=== PATIENT | female | born 1950 | race Caucasian/White ===

== ENCOUNTER 2024-01-23 09:28 | Outpatient (AMB) | payer MEDICARE, MEDICAID, SELFPAY ==
[2024-01-23 09:38] VITALS: BP 118/64; PULSE 68; O2SAT 97; BMI 28.9
--- NOTE | 2024-01-23 09:38 | MHC.OFFVIS ---
Vital Signs 01/23/24 09:38 Height 5 ft 2 in Weight 158 lb 4.67 oz BMI 28.9 BP 118/64 Blood Pressure Location Lt brachial Position Sitting Pulse 68 Pulse Source Pulse Oximeter Pulse Oximetry (%) 97 Oxygen Delivery Method Room Air Intake Visit Reasons: PSA/MR Recieved Intake Note: Patient presents today for PSA. She was last seen on 10/03/23 at the [facility] by Dr. Doyle. Patient was never able to go to PT, she states by the time she went, the order was outdated. Allergies erythromycin base Allergy (Unknown, Unverified 01/23/24 09:40) Unknown lisinopril Adverse Reaction (Unknown, Unverified 01/23/24 09:40) Unknown pantoprazole [From Protonix] Adverse Reaction (Unknown, Verified 01/23/24 09:40) Unknown HPI HPI PSA/MR Recieved: Details: PT order for lumbar spine strengthening . She was unable to get an order from PCP during my practice transition. She is doing exercises learned from PT in the past and reports her back pain is controlled. Pain in R wrist medially is intermittent with bruising present. She has been wearing wrist brace at night. [facility]. Rheumatology history: Diagnosed with psoriatic arthritis presenting with dactylitis in bilateral hands with synovitis 2 episodes 09/22/2019 and 10/22/2020, later episode treated with prednisone course. History of psoriasis and palms, elbows and buttocks diagnosed by PCP. She has not had any future episodes, therefore, monitoring clinically. She is not on DMARD therapy. She has also had history of trigger finger right 4th treated with cortisone injection 05/23/2023 and left 4th 06/22/2022. She also has history of de Quervain tenosynovitis involving her right hand treated with cortisone injection 05/22/2022 and 05/23/2023. 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 [facility] Medical History (Updated 01/23/24 @ 10:08 by Drew Doyle MD) Tenosynovitis of finger Disturbance of salivary secretion Psoriatic arthropathy Osteoarthritis of lumbar spine Osteoarthritis, hand, primary localized Lumbar spondylosis Dry eye syndrome Backache Surgical History (Updated 01/21/24 @ 13:41 by Evelin Fernandez CMA) Hx of colonoscopy Family History (Updated 01/21/24 @ 13:46 by Evelin Fernandez CMA) Father Psoriasis Mother Heart disease Review of Systems Const All systems reviewed & are unremarkable except as noted in HPI and below Physical Exam Vital Signs: Last Vital Signs Pulse 68 01/23/24 09:38 BP 118/64 01/23/24 09:38 Pulse Ox 97 01/23/24 09:38 Oxygen Delivery Method Room Air 01/23/24 09:38 BMI result Body Mass Index 28.9 Const General: cooperative and healthy appearing Resp Effort & Inspection: normal respiratory effort Auscultation: clear to auscultation bilaterally Cardio Rate: regular rate Rhythm: regular rhythm Heart sounds: S1 normal heart sound present and S2 normal heart sound present Skin Other: Petechiae present right radial wrist Extrem Other: Tenderness to palpate along right 1st extensor compartment of wrist. Petechiae present along 1st extensor compartment of right wrist. No discoloration present on wrist. No synovitis or dactylitis of any joints. Good range of motion of upper extremity lower extremity. No tenderness of lumbar spine. Good lumbar flexion. Assessment & Plan Assessment & Plan (1) Psoriatic arthritis: Comment: Clinically quiescent. She is not on DMARD treatment. Code(s): L40.50 - Arthropathic psoriasis, unspecified Category: Medical Plan: Continue to monitor clinically (2) Lumbar spondylosis: Comment: Pain is controlled with home exercise program Code(s): M47.816 - Spondylosis without myelopathy or radiculopathy, lumbar region Category: Medical Plan: Continue home exercise program If pain worsens, patient will call office, we will then consider ordering L-spine x-ray with formal physical therapy consultation (3) De Quervain's tenosynovitis, right: Comment: Right recurrent. Pain is intermittent. We discussed conservative management. She currently has petechiae present locally. I would not recommend local cortisone injection to the area due to skin thinning, which may lead to more easily bruising. Code(s): M65.4 - Radial styloid tenosynovitis [de Quervain] Category: Medical Plan: She will purchase another wrist brace. Current wrist braces restrictive and she does not like wearing it during the day. She will apply diclofenac gel 1% to affected area every 4-6 hours as needed for pain control Plan . Coding Level of Care Code Est Pt Level 4 (55842) Complex EM visit Add On G2211 Diagnoses Psoriatic arthritis L40.50 Lumbar spondylosis M47.816 De Quervain's tenosynovitis, right M65.4
== END 2024-01-23 10:11 | disposition home or self-care (01) ==
PROVIDERS: PCP Internal Medicine; Visit Provider Internal Medicine Rheumatology
DX: L40.50 Arthropathic psoriasis, unspecified (principal); M47.816 Spondylosis without myelopathy or radiculopathy, lumbar region; M65.4 Radial styloid tenosynovitis [de Quervain]
CPT/HCPCS: 99214; G2211

== ENCOUNTER → 2024-01-23 09:28 | Outpatient (BNVA) | payer MEDICARE, MEDICAID, SELFPAY | PROVIDERS: PCP Internal Medicine; Visit Provider Internal Medicine Rheumatology | DX: L40.50 Arthropathic psoriasis, unspecified (principal); M65.341 Trigger finger, right ring finger; M65.4 Radial styloid tenosynovitis [de Quervain]; M47.816 Spondylosis without myelopathy or radiculopathy, lumbar region | CPT/HCPCS: 99212 ==

== ENCOUNTER 2024-06-11 08:53 | Outpatient (AMB) | payer MEDICARE, MEDICAID, SELFPAY ==
--- NOTE | 2024-06-11 09:05 | A.OFFVIS_ITS ---
Vital Signs 06/11/24 09:08 Height 5 ft 2 in BP 130/64 Blood Pressure Location Rt brachial Position Sitting Pulse 64 Pulse Source Pulse Oximeter Pulse Oximetry (%) 98 Oxygen Delivery Method Room Air Intake Visit Reasons: 3 mo follow up Intake Note: Pt presents today for arthritis. Accompanied by: Self / Same As Patient Allergies erythromycin base Allergy (Unknown, Verified 06/11/24 09:06) Unknown lisinopril Adverse Reaction (Unknown, Verified 06/11/24 09:06) Unknown pantoprazole [From Protonix] Adverse Reaction (Unknown, Verified 06/11/24 09:06) Unknown HPI HPI 3 mo follow up: Details: Pain in neck is debilitating that she wants to lie down. Trigger can be bending neck when doing dishes and folding laundry. It occurs a few times a week. Applying heat helps. Can last the entire day. Uses braces on both wrists and diclofenac gel. Hand pain has improved. R wrist pain>L wrist pain. [facility] Medical History (Updated 06/11/24 @ 22:44 by Drew Doyle MD) Tenosynovitis of finger Disturbance of salivary secretion Psoriatic arthropathy Osteoarthritis of lumbar spine Osteoarthritis, hand, primary localized Lumbar spondylosis Dry eye syndrome Backache Surgical History (Updated 01/21/24 @ 13:41 by Evelin Fernandez CMA) Hx of colonoscopy Family History (Updated 01/21/24 @ 13:46 by Evelin Fernandez CMA) Father Psoriasis Mother Heart disease Review of Systems Const All systems reviewed & are unremarkable except as noted in HPI and below Physical Exam Vital Signs: Last Vital Signs Pulse 64 06/11/24 09:08 BP 130/64 06/11/24 09:08 Pulse Ox 98 06/11/24 09:08 Oxygen Delivery Method Room Air 06/11/24 09:08 Const Other: General: Comfortable CVS: RRR Respiratory: clear to auscultation bilaterally. Good respiratory effort Skin: No lesions seen MSK: Tender to palpate lower spinous processes cervical spine. Normal range of motion of cervical spine. No paraspinal muscle tenderness. Tender to palpate bilateral 1st extensor compartment of wrists. Positive Kelly test. No synovitis or dactylitis present. Assessment & Plan Assessment & Plan (1) Neck pain: Comment: Localized tenderness is spinous process of lower cervical spine is concerning for osteoarthritis contributing to her pain. Code(s): M54.2 - Cervicalgia Category: Medical Plan: C-spine x-ray ordered PT ordered Return to clinic in 3 months (2) De Quervain's tenosynovitis, right: Comment: Right recurrent. Improved with bracing and diclofenac gel Code(s): M65.4 - Radial styloid tenosynovitis [de Quervain] Category: Medical Plan: Continue wearing wrist brace She will apply diclofenac gel 1% to affected area every 4-6 hours as needed for pain control. Monitor for worsening bruising OT ordered Return to clinic in 3 months (3) De Quervain's tenosynovitis, left: Comment: Recurrent. Improved with bracing and using diclofenac gel Code(s): M65.4 - Radial styloid tenosynovitis [de Quervain] Category: Medical Plan: See above (4) Psoriatic arthritis: Comment: Clinically quiescent. She is not on DMARD treatment. Code(s): L40.50 - Arthropathic psoriasis, unspecified Category: Medical Plan: Continue to monitor clinically (5) Lumbar spondylosis: Comment: Pain is controlled with home exercise program Code(s): M47.816 - Spondylosis without myelopathy or radiculopathy, lumbar region Category: Medical Plan: Continue home exercise program If pain worsens, patient will call office, we will then consider ordering L-s pine x-ray to evaluate for progression with formal physical therapy consultation Plan . Orders: Orders XR cervical spine 3V Today M54.2 - Cervicalgia PT Evaluation and Treatment Today M54.2 - Cervicalgia OT Evaluation and Treatment Today M65.4 - Radial styloid tenosynovitis [de Quervain] Coding Level of Care Code Est Pt Level 4 (73875) Complex EM visit Add On G2211 Diagnoses Neck pain M54.2 De Quervain's tenosynovitis, right M65.4 De Quervain's tenosynovitis, left M65.4 Psoriatic arthritis L40.50 Lumbar spondylosis M47.816
[2024-06-11 09:08] VITALS: BP 130/64; PULSE 64; O2SAT 98
--- OUTSIDE RECORDS SUMMARY | 2024-06-11 09:20 | XMS_ITS | Clinical Summary ---
Author Organization [address] [place] [address] [place] [phone] Phone Care Team Providers Care Milk Truck Driver Name Role Phone Nelia Robles MD Primary Care Provider Allergies Active Allergy Reactions Criticality Noted Date Comments Erythromycin Anaphylaxis High 06/27/2006 Other Reaction(s): Hives/Urticaria Lisinopril Headache Medium 01/23/2019 H/A's and poor BP control Pantoprazole Other High 02/06/2019 Protonix- Causes significant hypomagnesia Medications atorvastatin (LIPITOR) 40 mg tablet Take 1 Tablet by mouth daily. 4 Active cycloSPORINE 0.05 % drops 1 Drop 2 times daily. Active fluticasone propionate (FLONASE) 50 mcg/actuation nasal spray SPRAY 2 SPRAYS IN EACH NOSTRIL EVERY DAY 4 Active FREESTYLE LANCETS [facility] USE ONE TO CHECK GLUCOSE ONCE DAILY 4 Active magnesium chloride (Slow-Mag) 71.5 mg tablet,delayed release (DR/EC) Take by mouth. 0 Active albuterol HFA (PROAIR HFA ; PROVENTIL HFA ; VENTOLIN HFA) 90 mcg/actuation inhaler INHALE 2 PUFFS INTO THE LUNGS EVERY 4 HOURS NEEDED FOR COUGH OR WHEEZING 18 each 1 5 Active famotidine (PEPCID) 40 mg tablet TAKE 1 TABLET BY MOUTH TWICE A DAY 180 tablet 1 5 Active blood sugar diagnostic (FreeStyle Lite Strips) test stripIndications :Type 2 diabetes mellitus with diabetic neuropathy, unspecified ([facility]) CHECK GLUCOSE ONCE DAILY FREESTYLE LITE 100 strip 5 Active metoprolol succinate (TOPROL-XL) 25 mg 24 hr tablet TAKE 1/2 TABLET BY MOUTH DAILY 45 tablet 5 Active losartan (COZAAR) 25 mg tablet TAKE 1 TABLET BY MOUTH EVERY DAY 90 tablet 5 Active levothyroxine (SYNTHROID, LEVOTHROID) 75 mcg tablet TAKE 1 TABLET BY MOUTH EVERY DAY 90 tablet 5 Active FreeStyle Lancets 28 gauge lancetsIndicatio ns:Type 2 diabetes mellitus with diabetic neuropathy, unspecified ([facility]) USE ONE TO CHECK GLUCOSE ONCE DAILY 100 each 5 Active latanoprost (XALATAN) 0.005 % ophthalmic solution Administer 1 drop into both eyes. at bedtime 5 Active albuterol HFA (ProAir HFA) 90 mcg/actuation inhalerIndicatio ns:Mild intermittent asthma without complication Inhale 2 puffs by mouth every 4 (four) hours if needed for wheezing or shortness of breath. 13.4 g 1 5 05/30/19 26 Active magnesium oxide (MAG-OX) 400 mg (241.3 elemental magnesium) tabletIndication s:Hypomagnesemia Take 1 tablet (400 mg total) by mouth 1 (one) time each day for 7 days. 7 each 5 06/07/19 25 Active Problems Problem Noted Date Diagnosed Date Renal cyst 04/21/2021 DDD (degenerative disc disease), lumbar 02/19/20 21 Lumbar radiculitis 02/18/2021 Inflammatory spondylopathy 11/24/2019 Overview (01/07/2024): 11/22- deferred MTX or DMARD due to concerns of AE, low dose prednisone 2.5mg daily. Primary osteoarthritis of both hands 11/24/2019 Overweight 11/07/2019 Hypomagnesemia 07/03/2019 Situational anxiety 01/23/2019 Spondylolisthesis of lumbosacral region 12/24/19 19 Controlled type 2 diabetes m madelyn with diabetic neuropathy, without long-term current use of insulin 06/30/2016 GERD (gastroesophageal reflux disease) 7 Hiatal hernia 03/16/2016 Asthma 12/23/2014 Diverticulosis of duodenum 11/24/2014 Overview (01/07/2024): CR Upper GI with air 09/21/09 Fibromyalgia 11/24/2014 HTN (hypertension) 11/24/2014 Overview (01/07/2024): Last Assessment & Plan: Continue metoprolol 12.5 mg daily, amlodipine 5 mg daily and losartan 25 mg daily. Blood pressure is under good control today. Labs are ordered to be done today. Will continue to monitor blood pressures in office at next visit. Discussed dietary strategies to help control his blood pressure. Encouraged low-fat, lean protein, high-fiber, low-cholesterol, low carbohydrate diet. Regular exercise and weight loss also encouraged to help with blood pressure control. Recheck in 3 months. Return sooner as needed. Hyperlipidemia 11/24/2014 Overview (01/07/2024): Normal myocardial perfusion scan 06/01/14 LVEF 75% Last Assessment & Plan: Continue atorvastatin 40 mg daily. Discussed diet and exercise. Last cholesterol in August 2020 was under excellent control. We will continue to monitor. Hypothyroidism 11/24/2014 Stress incontinence 11/24/2014 Encounters Date Type Department Care Team Description 05/30/2024 Telephone Internal Medicine - [address] [phone] Bekah Blanchard MA Results 05/29/2024 8:00 AM EDT Office Visit Internal Medicine - [address] [phone] Nelia Robles MD Controlled type 2 diabetes mellitus with diabetic neuropathy, without long-term current use of insulin ([facility]) (Primary Dx); Mild intermittent asthma without complication; Hypothyroidism, unspecified type; Hypomagnesemia 05/13/2024 8:30 AM EDT Office Visit Vascular Surgery - [place] [address] [place] [phone] Marisol Chen PA PAD (peripheral artery disease) ([facility]) (Primary Dx) 04/22/2024 12:30 PM EST Ancillary Procedure [facility] Cardiology [facility] [address] [place] [address] PAD (peripheral artery disease) ([facility]) from Last 3 Months Immunizations Name Administration Dates Next Due Influenza trivalent, 0.5mL ( Fluad) 65yo and older 11/16/2022,11/22/2021,12/23/2020,12/23,11/11/2019,11/11/2019,11/27/2018 ,11/27/2018,12/31/2017,01/18/2017,01/03 Influenza trivalent, 0.5mL, preservative free (Fluarix; FluLaval; Fluzone) ages 6mo and older (Afluria) 3 years and older 12/31/2017,01/14/2016 Influenza trivalent, with pr eservative (Fluzone; Afluria) 6mo and older 12/31/2017,01/14/2016 Influenza, Unspecified 11/21/2023 Moderna Covid-19 Bivalent, O riginal + Ba.1 (Non-US Tradename Spikevax Bivalent) 11/27/2023,12/26/2022,01/10/2022 Pneumococcal conjugate 13 va lent (Prevnar 13, PCV13) 2mo and older 01/18/2017 Pneumococcal polysaccharide 23 valent (Pneumovax 23) 2yo and older 05/03/2021,05/03/2021,01/14/2016 Respiratory syncytial virus (RSV), unspecified 12/06/2022 Tdap Tetanus diptheria acell ular pertussis (Boostrix; Adacel) 7yo and older 03/03/2016 Zoster Live 05/18/2017 Zoster recombinant (Shingrix ) 19yo and older 05/13/2019,05/13/2019,12/09/2018,12/09 Surgical History Surgery Date Site/Laterality Comments SECTION PROCEDURE: PA DELIVERY ONLY; COMMENT: 1975 x1 UPPER GASTROINTESTINAL ENDOSCOPY PROCEDURE: PA UPPER GI ENDOSCOPY PERFORMED COLONOSCOPY PROCEDURE: HISTORICAL COLONOSCOPY OTHER SURGICAL HISTORY PROCEDURE: PA DILATION & CURETTAGE DX&/THER NONOBSTETRIC Medical History Medical History Date Comments Asthma 12/23/2014 DX:Asthma Diverticulosis of duodenum 11/24/2014 DX:Di verticulosis of duodenum; COMMENT: CR Upper GI with air 09/21/09 DM (diabetes mellitus), type 2 with renal complications (CMS/HCC) 09/17/2017 DX:DM (diabetes mellitus ), type 2 with renal complications ([facility]) Fibromyalgia 11/24/2014 DX:Fibromyalgia GERD (gastroesophageal reflux disease) DX:GERD (gastroesophageal reflux disease) Hiatal hernia 03/16/2016 DX:Hiatal hernia HTN (hypertension) 11/24/2014 DX:HTN (hyper tension) Hyperlipidemia 11/24/2014 DX:Hyperlipidemi a; COMMENT: Normal myocardial perfusion scan 06/01/14 LVEF 75% Hypothyroidism 11/24/2014 DX:Hypothyroidis m Microalbuminuria 11/24/2014 DX:Microalbumin uria Obesity (BMI 30-39.9) 09/17/2017 DX:Obesity (BMI 30-39.9) Stress incontinence 11/24/2014 DX:Stress in continence Vitamin D deficiency 09/28/2017 DX:Vitamin D deficiency Psoriatic arthritis ([facility]) DX :Psoriatic arthritis ([facility]) Family History Medical History Relation Name Comments Cataracts Father Breast cancer Maternal Grandmother ?age Arthritis Mother Breast cancer Sister 45 50 of ot her causes,cataract Other: chronic kidney disease Sister 45 50 on dialysis Relation Name Status Comments Father Maternal Grandmother ?age Mother Sister 45 50 Social History Tobacco Use Types Packs/Day Years Used Date Smoking Tobacco: Former Cigarettes Q uit: 09/02/2018 Smokeless Tobacco: Never Tobacco Cessation:Counseling Given: Not Answered Alcohol Use Standard Drinks/Week Comments Yes 0 (1 standard drink = 0.6 oz pur e alcohol) Comments No Sex and Gender Information Value Date Recorded Sex Assigned at Not on file Legal Sex Female 2:31 AM EST Gender Identity Not on file Sexual Orientation Not on file Obstetrics History Last Filed Vital Signs Vital Sign Reading Time Taken Comments Blood Pressure 138/67 05/29/2024 8:[address] Pulse 63 05/29/2024 8:07 AM EDT avera ge Temperature - - Respiratory Rate 16 05/13/2024 8:31 AM EDT Oxygen Saturation - - Inhaled Oxygen Concentration - - Weight 68.9 kg (152 lb) 05/29/2024 8:03 AM EDT Height 157.5 cm (5' 2 ) 05/29/2024 8:03 AM EDT Body Mass Index 27.8 05/29/2024 8:03 AM EDT Plan of Treatment Upcoming Encounters Date Type Department Care Team (Late st Contact Info) Description 09/30/2024 8:00 AM EDT Office Visit Internal Medicine - [facility] [address] [place] [phone] Nelia Robles MD [address] [place] [address] 04/07/2025 10:00 AM EST Ancillary Procedure [facility] [address] [facility] [address] [place] [address] 05/14/2025 9:30 AM EDT Office Visit Vascular Surgery - [place] [address] [place] [address] Marisol Chen PA [address] [facility] [address] [place] [address] Health Maintenance Due Date Last Done Comments Diabetes: Annual Foot Exam 10/17/1961 RSV Immunization Adult Patients (1 - Risk 60-74 years 1-dose series) 2011 12/06/2022 Colorectal Cancer Screening: Stool Based Tests (FOBT/FIT) 02/11/2022 Depression Screening 02/11/2022 Social Influencers of Health Screening 02/11/2022 Medicare Annual Wellness Visit 09/29/2023 09/28/2022 Falls Risk Assessment 04/03/2024 04/03/2023 Breast Cancer Screening 10/25/2024 10/26/19 23, 10/19/2021, 09/29/2020, Additional history exists Diabetes: Blood Sugar Control Test (HGBA1C) 11/29/2024 05/29/2024, 01/09/2024, 10/02/2023 Diabetes: Annual Retina Eye Exam 05/15/2025 05/15/2024, 05/17/2023 Diabetes: Annual Urine Albumin-Creatinine Ratio (uACR) 05/29/2025 05/29/2024, 10/03/2023 Diabetes: Annual GFR (Glomerular Filtration Rate) 05/29/2025 05/29/2024, 01/09/2024, 10/02/2023, Additional history exists Hypertension/CHF/CAD Annual BMP Blood Test 05/29/2025 05/29/2024, 01/09/2024, 10/02/2023, Additional history exists DTaP,Tdap,and Td Vaccines (2 - Td or Tdap) 03/03/2026 03/03/2016 Cholesterol Screening (Lipid Panel) 05/29/2029 05/29/2024, 01/09/2024, 10/02/2023 Osteoporosis Screening (Bone Density Screening) 09/09/2031 09/08/2021, 04/30/2019, 04/18/2017 Hepatitis C Screening Completed 03/03/2016 Zoster Vaccines Completed 05/13/2019, 05/03, 12/09/2018, Additional history exists Pneumococcal Vaccine: 50+ Years Completed 05/03/2021, 05/03/2021, 01/18/2017, Additional history exists Colorectal Cancer Screening: Colonoscopy Discontinued 06/02/2022 RSV Immunization Patients Under 20 months Aged Out 12/06/2022 No longer eligible based on patient's age to complete this topic Influenza Vaccine Completed 11/21/2023, , 11/22/2021, Additional history exists COVID-19 Vaccine Completed 11/27/2023, , 01/10/2022, Additional history exists HIB Vaccines Aged Out No longer eligi ble based on patient's age to complete this topic HPV Vaccines Aged Out No longer eligi ble based on patient's age to complete this topic Hepatitis A Vaccines Aged Out No long er eligible based on patient's age to complete this topic Hepatitis B Vaccines Aged Out No long er eligible based on patient's age to complete this topic IPV Vaccines Aged Out No longer eligi ble based on patient's age to complete this topic MMR Vaccines Aged Out No longer eligi ble based on patient's age to complete this topic Meningococcal ACWY Vaccine Aged Out N o longer eligible based on patient's age to complete this topic Meningococcal B Vaccine Aged Out No l onger eligible based on patient's age to complete this topic Varicella Vaccines Aged Out No longer eligible based on patient's age to complete this topic Procedures Procedure Name Priority Date/Time Associated Diagnosis Comments MICROALBUMIN CREATININE URINE RATIO Routine 05/29/2024 9:07 AM EDT Controlled type 2 diabetes mellitus with diabetic neuropathy, without long-term current use of insulin ([facility]) COMPREHENSIVE METABOLIC PANEL Routine 05/29/2024 8:43 AM EDT Controlled type 2 diabetes mellitus with diabetic neuropathy, without long-term current use of insulin ([facility]) HEMOGLOBIN A1C Routine 05/29/2024 8:43 AM EDT Controlled type 2 diabetes mellitus with diabetic neuropathy, without long-term current use of insulin ([facility]) LIPID PANEL WITH REFLEX TO DIRECT LDL Routine 05/29/2024 8:43 AM EDT Controlled type 2 diabetes mellitus with diabetic neuropathy, without long-term current use of insulin ([facility]) THYROID STIMULATING HORMONE Routine 05/29/2024 8:43 AM EDT Hypothyroidism, unspecified type MAGNESIUM Routine 05/29/2024 8:43 AM EDT Hypomagnesemia EXTERNAL DIABETIC RETINA EYE EXAM 05/15/2024 VAS US DUPLEX LOWER EXT ARTERIES BILAT WITH CHRISTIN Routine 04/22/2024 1:11 PM EST PAD (peripheral artery disease) ([facility]) FALLS RISK ASSESSMENT Routine 04/03/2023 [facility] SCREENING DIGITAL Routine 10/25/2022 10:42 AM EDT Encounter for screening mammogram for malignant neoplasm of breast COLONOSCOPY Routine 06/02/2022 DXA BONE DENSITY STUDY 1+ SITS AXIAL SKEL Routine 09/08/2021 9:05 AM EDT Encounter for screening for osteoporosis HEPATITIS C SCREENING Routine 03/03/2016 from Last 3 Months or Most Recently Relevant to Health Maintenance Results * Microalbumin creatinine urine ratio (05/29/2024 9:07 AM EDT) Creatinine, Urine 119.0 mg/dL LAB CHEMISTRY METHOD 05/29/2024 3:21 PM EDT [facility] Microalb, Ur 14.2 0.0 - 29.0 mg/L LAB CHEMISTRY METHOD 05/29/2024 3:21 PM EDT [facility] Microalb/Creat Ratio 12 <30 mg/g creat LAB CHEMISTRY METHOD 05/29/2024 3:21 PM EDT [facility] Urine Urine specimen obtained by clean catch procedure / Unknown Non-blood Collection / Unknown 05/29/2024 9:07 AM EDT 05/29/2024 9:07 AM EDT us Nelia Robles MD LAB URINE ORDERABLES Final Res ult [facility] [address] [place] [address], [place] [phone] * (ABNORMAL) Lipid panel with reflex to direct LDL (05/29/2024 8:43 AM EDT) Cholesterol 199 0 - 200 mg/dL LAB CHEMISTRY METHOD 05/29/2024 1:10 PM EDT [facility] Triglycerides 138 0 - 150 mg/dL LAB CHEMISTRY METHOD 05/29/2024 1:10 PM EDT [facility] HDL 62 >=40 mg/dL LAB CHEMISTRY METHOD 05/29/2024 1:10 PM EDT [facility] LDL Calculated 109(H) 0 - 100 mg/dL LAB CHEMISTRY METHOD 05/29/2024 1:10 PM EDT [facility] VLDL Cholesterol Oleg 27.6 mg/dL LAB CHEMISTRY METHOD 05/29/2024 1:10 PM EDT [facility] Non HDL Chol. (LDL+VLDL) 137 <145 mg/dL LAB CHEMISTRY METHOD 05/29/2024 1:10 PM EDT [facility] Chol/HDL Ratio 3.2 0.0 - 4.4 LAB CHEMISTRY METHOD 05/29/2024 1:10 PM EDT [facility] Blood Venous blood specimen / Unknown Venipuncture / Unknown 05/29/2024 8:43 AM EDT 05/29/2024 8:50 AM EDT us Nelia Robles MD LAB BLOOD ORDERABLES Final Res ult [facility] [address] [place] [address], [place] [phone] * Thyroid stimulating hormone (05/29/2024 8:43 AM EDT) TSH 1.80 0.40 - 4.00 mcIU/mL LAB CHEMISTRY METHOD 05/29/2024 1:58 PM EDT [facility] Blood Venous blood specimen / Unknown Venipuncture / Unknown 05/29/2024 8:43 AM EDT 05/29/2024 8:50 AM EDT us Nelia Robles MD LAB BLOOD ORDERABLES Final Res ult [facility] [address] [place] [address], [place] [phone] * (ABNORMAL) Magnesium (05/29/2024 8:43 AM EDT) Magnesium 1.6(L) 1.9 - 2.6 mg/dL LAB CHEMISTRY METHOD 05/29/2024 1:10 PM EDT [facility] Blood Venous blood specimen / Unknown Venipuncture / Unknown 05/29/2024 8:43 AM EDT 05/29/2024 8:50 AM EDT us Nelia Robles MD LAB BLOOD ORDERABLES Final Res ult Performing Organization Address [facility]/ZIP Co de Phone Number [facility] [address] [place] [address], [place] [phone] * Hemoglobin A1c (05/29/2024 8:43 AM EDT) Pathologist [facility] Hemoglobin A1C 5.8 <6.5 % LAB CHEMISTRY METHOD 05/29/2024 9:20 PM EDT [facility] Mean Bld Glu Estim. 120 mg/dL LAB CHEMISTRY METHOD 05/29/2024 9:20 PM EDT [facility] Blood Venous blood specimen / Unknown Venipuncture / Unknown 05/29/2024 8:43 AM EDT 05/29/2024 8:50 AM EDT us Nelia Robles MD LAB BLOOD ORDERABLES Final Res ult Performing Organization Address City/[facility]/ZIP Co de Phone Number [facility] [address] [place] [address], [place] [phone] * Comprehensive metabolic panel (05/29/2024 8:43 AM EDT) Pathologist [facility] Sodium 139 133 - 145 mmol/L LAB CHEMISTRY METHOD 05/29/2024 1:17 PM EDT [facility] Potassium 3.7 3.5 - 5.5 mmol/L LAB CHEMISTRY METHOD 05/29/2024 1:17 PM EDT [facility] Chloride 103 96 - 110 mmol/L LAB CHEMISTRY METHOD 05/29/2024 1:17 PM EDT [facility] CO2 26 21 - 32 mmol/L LAB CHEMISTRY METHOD 05/29/2024 1:17 PM EDT [facility] Anion Gap 10 3 - 11 LAB CHEMISTRY METHOD 05/29/2024 1:17 PM [facility] Glucose 94 70 - 100 mg/dL LAB CHEMISTRY METHOD 05/29/2024 1:17 PM [facility] BUN 14 5 - 25 mg/dL LAB CHEMISTRY METHOD 05/29/2024 1:17 PM [facility] Creatinine 0.62 0.50 - 1.10 mg/dL LAB CHEMISTRY METHOD 05/29/2024 1:17 PM [facility] eGFR 95 >=60 mL/min/1. 73m2 LAB CHEMISTRY METHOD 05/29/2024 1:17 PM [facility] Comment:Calculation based on the??Chronic Kidney Disease Epidemiology Collaboration (CKD-EPI) equation refit??without adjustment for race. BUN/Creatinine Ratio 22.6 LAB CHEMISTRY METHOD 05/29/2024 1:17 PM [facility] Calcium 9.5 8.5 - 10.5 mg/dL LAB CHEMISTRY METHOD 05/29/2024 1:17 PM [facility] AST (SGOT) 17 10 - 42 unit/L LAB CHEMISTRY METHOD 05/29/2024 1:17 PM [facility] ALT (SGPT) 17 10 - 60 unit/L LAB CHEMISTRY METHOD 05/29/2024 1:17 PM [facility] Alkaline Phosphatase 50 42 - 121 unit/L LAB CHEMISTRY METHOD 05/29/2024 1:17 PM [facility] Total Protein 8.0 6.0 - 8.0 g/dL LAB CHEMISTRY METHOD 05/29/2024 1:17 PM [facility] Albumin 4.6 3.2 - 5.0 g/dL LAB CHEMISTRY METHOD 05/29/2024 1:17 PM [facility] Total Bilirubin 0.8 0.0 - 1.4 mg/dL LAB CHEMISTRY METHOD 05/29/2024 1:17 PM [facility] Blood Venous blood specimen / Unknown Venipuncture / Unknown 05/29/2024 8:43 AM EDT 05/29/2024 8:50 AM EDT Nelia Robles MD LAB BLOOD ORDERABLES Final Res ult [facility] ([facility] [address] [place] [address], [place] [phone] * External Diabetic Retina Eye Exam Report (05/15/2024) Anatomical Region Laterality Modality Ultrasound us Provider [facility] IMG US PROCEDURES Final Result * Vascular US duplex lower extremity arteries bilateral with CHRISTIN (04/22/2024 1:11 PM EST) Left Dist External Iliac PSV 96 cm/s [facility] Left Prox External Iliac PSV 79 cm/s [facility] Left AT dist sys PSV 18 cm/s [facility] Left AT mid sys PSV 44 cm/s [facility] Left AT prox sys PSV 35 cm/s CV [facility] LAB Left MULTIMEDIA ASSISTANT prox sys PSV 130 cm/s CV V[facility] LAB Left mid peroneal sys PSV 110 cm/s CV VAS LAB Left popliteal dist sys PSV 53 cm/s CV [facility] LAB Left popliteal prox sys PSV 30 cm/s CV [facility] LAB Left PT mid sys PSV 17 cm/s CV [facility] LAB Left PT prox sys PSV 31 cm/s CV VAS LAB Left profunda sys PSV 131 cm/s CV [facility] LAB Left super femoral dist sys PSV 74 cm/s CV [facility] Left super femoral mid sys PSV 279 cm/s CV [facility] Left super femoral prox sys PSV 147 cm/s CV [facility] Right Dist External Iliac PSV 84 cm/s CV VAS LAB Right Prox External Iliac PSV 82 cm/s CV VAS LAB Right AT dist sys PSV 47 cm/s CV [facility] LAB Right AT mid sys PSV 51 cm/s CV VAS LAB Right AT prox sys PSV 76 cm/s CV VAS LAB Right MULTIMEDIA ASSISTANT prox sys PSV 103 cm/s CV VAS LAB Right mid peroneal sys PSV 86 cm/s CV VAS LAB Right popliteal dist sys PSV 42 cm/s CV [facility] LAB Right popliteal prox sys PSV 61 cm/s CV [facility] LAB Right PT dist sys PSV 15 cm/s CV [facility] LAB Right PT mid sys PSV 34 cm/s CV [facility] Right PT prox sys PSV 33 cm/s CV [facility] LAB Right profunda sys PSV 127 cm/s [facility] Right super femoral dist sys PSV 102 cm/s [facility] Right super femoral mid sys PSV 185 cm/s [facility] Right super femoral prox sys PSV 206 cm/s [facility] Right arm BP 152 mmHg [facility] Left arm BP 155 mmHg [facility] Right posterior tibial 142 mmHg [facility] Right Dorsalis Pedis 117 mmHg [facility] Right CHRISTIN 0.92 CV [facility] Left posterior tibial 131 mmHg [facility] Left Dorsalis Pedis 136 mmHg [facility] Left CHRISTIN 0.88 [facility] Anatomical Region Laterality Modality Vascular, Abdomen Ultrasound Narrative 04/23/2024 9:07 PM EST ?Left distal posterior tibial artery is occluded. Right: The CHRISTIN is 0.92 indicating borderline PAD. Normal pulse volume waveform at the right ankle. Normal amplitude PPG waveform in the digit. There is moderate, diffuse atherosclerotic palque in the right lower extremity arteries. There is moderate (30-49%) stenosis of the right proximal SFA. 3-vessel runoff is noted in the right calf. Left: The CHRISTIN is 0.88 indicating mild PAD. Normal pulse volume waveform at the left ankle. Reduced amplitude PPG waveform in the digit. There is diffuse atherosclerotic palque in the left lower extremity arteries. There is moderate (30 to 49%) stenosis of the left mid SFA and left peroneal artery. The left posterior tibial artery is occluded distally. 2 vessel runoff is noted in the left calf. Right Lower Arterial Duplex The distal external iliac artery has biphasic flow. The common femoral artery has biphasic flow. The profunda femoris artery has biphasic flow. The superficial femoral artery has biphasic flow. The popliteal artery has biphasic flow. The anterior tibial artery has biphasic flow. The posterior tibial artery has biphasic flow. The mid peroneal artery has biphasic flow. Left Lower Arterial Duplex The distal external iliac artery has biphasic flow. The common femoral artery has biphasic flow. The superficial femoral artery has biphasic flow. The popliteal artery has biphasic flow. The anterior tibial artery has biphasic flow. The proximal posterior tibial artery has biphasic flow. The mid posterior tibial artery has biphasic flow. The distal posterior tibial artery is occluded. The mid peroneal artery has biphasic flow. [employer] Developer Details A potter scale, color and doppler analysis ultrasound was performed. During the study longitudinal views were obtained. Continuous wave doppler and pulsed wave doppler was performed. Overall the study quality was good. Tom Pratt MD CV VASCULAR PROCEDURES Final Re sult * Hm Falls Risk Assessment (04/03/2023) Pathologist [facility] Falls Risk Assessment Abstracted us Historical Provider HEALTH MAINTENANCE Final Result * RAMÓN SCREENING DIGITAL (10/25/2022 10:42 AM EDT) Anatomical Region Laterality Modality Mammography 10/25/2022 9:30 AM EDT Narrative 10/25/2022 10:42 AM EDT [facility] Diagnostic Imaging Department [address] [place] [address] Patient: ??TAMMY AGUIRRE ?/Age/Sex: 1950 - 72 - F Unit#: ??[id number] ? Location/Status: ??SPDIMAM/REG CLI ? Mnemonic/Ordering Site: ??DIGSC/SPMAM Ordering Physician: ??NELIA ROBLES MD [facility] Screening Digital - 10/25/22 - 0956 Report Status:Signed EXAM: [facility] Screening Digital EXAM DATE AND TIME: 10/25/2022 9:57 AM HISTORY: Annual screening COMPARISON: ??10/19/2021, 09/29/2020, 09/24/2019 TECHNIQUE: Bilateral digital breast tomosynthesis was performed in the CC and MLO projections. Computer aided detection with LED Engin 3D 3.1 was employed. TISSUE DENSITY: b. There are scattered areas of fibroglandular density. FINDINGS: No suspicious masses, grouped microcalcifications, or areas of architectural distortion are seen. The skin and vascularity are unremarkable. IMPRESSION: Stable mammographic appearance of the breasts. ??No evidence of malignancy is seen. A negative mammogram in the presence of a clinically suspicious palpable abnormality does not preclude the possibility of malignancy or alter the indications for biopsy. BI-RADS: ??Category 1: Negative RECOMMENDATION(S): 1: Routine screening mammogram BILATERAL in 1 year. 3341F, 7025F Dictating Physician: ??NAY DAVILA MD Electronically Signed by: ??NAY DAVILA MD Dic Date/Time: ??10/25/22 1041 Sign date/Time: ??10/25/22 1042 Procedure Note Nay Davila MD - 04/10/2023 [facility] Diagnostic Imaging Department [address] [place] [address] Patient: TAMMY AGUIRRE/Age/Sex: 1950 - 72 - F Unit#: [id number] Location/Status: SPDIMAM/REG CLI Mnemonic/Ordering Site: DIGSC/SPMAM Ordering Physician: NELIA ROBLES MD [facility] Screening Digital - 10/25/22 - 0956 Report Status:Signed EXAM: [facility] Screening Digital EXAM DATE AND TIME: 10/25/2022 9:57 AM HISTORY: Annual screening COMPARISON: 10/19/2021, 09/29/2020, 09/24/2019 TECHNIQUE: Bilateral digital breast tomosynthesis was performed in the CCand MLO projections. Computer aided detection with LED Engin 3D 3.1was employed. TISSUE DENSITY: b. There are scattered areas of fibroglandular density. FINDINGS: No suspicious masses, grouped microcalcifications, or areas ofarchitectural distortion are seen. The skin and vascularity are unremarkable. IMPRESSION: Stable mammographic appearance of the breasts. No evidence of malignancyis seen. A negative mammogram in the presence of a clinically suspicious palpable abnormality does not preclude the possibility of malignancy or alter the indications for biopsy. BI-RADS: Category 1: Negative RECOMMENDATION(S): 1: Routine screening mammogram BILATERAL in 1 year. 3341F, 7025F Dictating Physician: NAY DAVILA MD Electronically Signed by: NAY DAVILA MD Dic Date/Time: 10/25/22 1041 Sign date/Time: 10/25/22 1042 us Nelia Robles MD IMG BI PROCEDURES Final Result * Colonoscopy (06/02/2022) Colonoscopy No interpretation , Abstracted Anatomical Region Laterality Modality Other Historical Provider HEALTH MAINTENANCE Final Result * DXA BONE DENSITY STUDY 1+ SITS AXIAL SKEL (09/08/2021 9:05 AM EDT) Anatomical Region Laterality Modality Bone Densitometr y 05/30/2021 2:30 PM EDT Narrative 09/08/2021 4:31 PM EDT BONE DENSITY ? Lumbar Spine T-score is +0.3 ?? (SD relative to 20-29 y/o adult) Z-score is +2.4 ??(SD relative to age matched peers) This is normal by criteria defined by the WHO. Left Hip T-score is -0.6 Z-score is +0.9 This is normal by criteria defined by the WHO. Comparison exam(s): significant decrease in bone density of ??hip when compared to most recent bone density examination ?? Confidence level is +/-95%. Impression: Based on the World Health Organization criteria, Tammy Aguirre should be classified as having normal bone density. The [facility] Department of Internal Medicine recommends using National Osteoporosis Foundation (NOF) guidelines in treatment decisions related to osteoporosis. NOF guidelines suggest considering treatment for postmenopausal women and men aged 50 or older presenting with the following: History of hip or vertebral fracture. T-score less than or equal to -2.5 (DXA) at the femoral neck, total hip, or spine, after appropriate evaluation to exclude secondary causes. Low bone mass (T-score between -1.0 and -2.5 at the femoral neck or spine) AND a 10-year probability of a hip fracture greater than or equal to 3% OR a 10-year probability of a major osteoporosis-related fracture greater than or equal to 20% based on the [place]-adapted WHO algorithm Please note that all treatment decisions require clinical judgment and consideration of individual patient factors, including patient preferences, co-morbidities, previous drug use, risk factors not captured in the FRAX model (e.g., frailty, falls, vitamin D deficiency, increased bone turnover, interval significant decline in bone density) and possible under- or over-estimation of fracture risk by FRAX. Procedure Note Shira Choi MD - 02/21/2022 BONE DENSITY Lumbar Spine T-score is +0.3 (SD relative to 20-29 y/o adult) Z-score is +2.4 (SD relative to age matched peers) This is normal by criteria defined by the WHO. Left Hip T-score is -0.6 Z-score is +0.9 This is normal by criteria defined by the WHO. Comparison exam(s): significant decrease in bone density of hip whencompared to most recent bone density examination Confidence level is +/-95%. Impression: Based on the World Health Organization criteria, Tammy Aguirre shouldbe classified as having normal bone density. The [facility] Department of Internal Medicine recommendsusing National Osteoporosis Foundation (NOF) guidelines in treatmentdecisions related to osteoporosis. NOF guidelines suggest consideringtreatment for postmenopausal women and men aged 50 or older presentingwith the following: History of hip or vertebral fracture. T-score less than or equal to -2.5 (DXA) at the femoral neck, total hip,or spine, after appropriate evaluation to exclude secondary causes. Low bone mass (T-score between -1.0 and -2.5 at the femoral neck or spine)AND a 10-year probability of a hip fracture greater than or equal to 3% ORa 10-year probability of a major osteoporosis-related fracture greaterthan or equal to 20% based on the [place]-adapted WHO algorithm Please note that all treatment decisions require clinical judgment andconsideration of individual patient factors, including patientpreferences, co-morbidities, previous drug use, risk factors not capturedin the FRAX model (e.g., frailty, falls, vitamin D deficiency, increasedbone turnover, interval significant decline in bone density) and possibleunder- or over-estimation of fracture risk by FRAX. Nelia Robles MD [facility] DXA PROCEDURES Final Resul t * Hepatitis C Screening (03/03/2016) [facility] Hepatitis C Screening Abstracted Historical Provider HEALTH MAINTENANCE Final Result from Last 3 Months or Most Recently Relevant to Health Maintenance Insurance MEDICA[place] - [place] MEDICARE [place] Care Teams Milk Truck Driver Relationship Specialty Start Date End Date Nelia Robles MD [address] [place] [phone] PCP - General Internal Medicine 01/09/24
== END 2024-06-11 09:49 | disposition home or self-care (01) ==
LOC: HO.RHES 08:54
PROVIDERS: PCP Internal Medicine; Visit Provider Internal Medicine Rheumatology
DX: M54.2 Cervicalgia (principal); M65.4 Radial styloid tenosynovitis [de Quervain]; L40.50 Arthropathic psoriasis, unspecified; M47.816 Spondylosis without myelopathy or radiculopathy, lumbar region
CPT/HCPCS: 99214; G2211

== ENCOUNTER → 2024-06-11 08:53 | Outpatient (BNVA) | payer MEDICARE, MEDICAID, SELFPAY | PROVIDERS: PCP Internal Medicine; Visit Provider Internal Medicine Rheumatology | DX: M54.2 Cervicalgia (principal); M65.4 Radial styloid tenosynovitis [de Quervain]; L40.50 Arthropathic psoriasis, unspecified; M47.816 Spondylosis without myelopathy or radiculopathy, lumbar region | CPT/HCPCS: 99212 ==

== ENCOUNTER 2024-06-26 08:36 | Outpatient (REF) | payer MEDICARE, MEDICAID, SELFPAY ==
--- NOTE | ~2024-06-26 | XR_ITS ---
EXAMINATION: XR CERVICAL SPINE CLINICAL INFORMATION: M54.2 - Cervicalgia COMPARISON: None available. TECHNIQUE: 3 views of the cervical spine were obtained. FINDINGS: There is no scoliosis. There is a normal lordosis. There is no fracture, compression deformity, or suspicious bone lesion. Sagittal alignment demonstrates a 2 mm degenerative appearing retrolisthesis of C4 on C5. Alignment is otherwise normal. The craniocervical junction and C1-2 articulation appear intact and aligned. There is normal facet alignment. There are multilevel hypertrophic degenerative facet changes bilaterally. Moderate to severe disc degeneration C5-6 and to a lesser degree C6-7. No prevertebral soft tissue abnormality. There are bilateral carotid bulb calcifications. Lung apices appear clear. XR/XR cervical spine 3V IMPRESSION: 1. No acute bony abnormalities. 2. Mild to moderate spondylosis most significant at C5-6 and C6-7. Electronically signed by: Byron Patrick MD 06/27/2024 03:19 PM EDT
--- OUTSIDE RECORDS SUMMARY | 2024-06-26 09:04 | XMS_ITS | Clinical Summary ---
Author Organization [address] [place] [address] [place] [phone] Phone Care Team Providers Care Log Sawyer Name Role Phone Nelia Robles MD Primary Care Provider [phone] Allergies Active Allergy Reactions Criticality Noted Date [...] NOSTRIL EVERY DAY 4 Active FREESTYLE LANCETS [facility] USE ONE TO CHECK GLUCOSE ONCE DAILY [...] 2 diabetes mellitus with diabetic neuropathy, unspecified ([facility] V24, [facility] V28) CHECK GLUCOSE ONCE DAILY FREESTYLE LITE 100 [...] 2 diabetes mellitus with diabetic neuropathy, unspecified ([employer] [employer] V24, [facility] V28) USE ONE TO CHECK GLUCOSE ONCE DAILY [...] 02/19/20 21 Lumbar radiculitis 02/18/2021 Inflammatory spondylopathy ([employer] [facility] [employer] V24) 020 Overview (01/07/2024): 11/22- deferred MTX or DMARD due to concerns of AE, low dose prednisone 2.5mg daily. Primary osteoarthritis of both hands 11/24/2019 Overweight 11/07/2019 Hypomagnesemia 07/03/2019 Situational anxiety 01/23/2019 Spondylolisthesis of lumbosacral region 12/24/19 19 Controlled type 2 diabetes m madelyn with diabetic neuropathy, without long-term current use of insulin ([facility] V24, [facility] V28) 06/30/2016 GERD (gastroesophageal reflux disease) 7 Hiatal [...] Team Description 05/30/2024 [facility]phone [facility] [address] [facility] Manda MENA MD [phone] Bekah Blanchard [place] Results 05/29/2024 8:00 AM EDT Office Visit Internal Medicine - [facility] [address] [facility] [place]anda [place] [phone] Nelia Robles MD Controlled type 2 diabetes mellitus with diabetic neuropathy, without long-term current use of insulin ([facility] V24, [facility] V28) (Primary Dx); Mild intermittent asthma without complication; Hypothyroidism, unspecified type; Hypomagnesemia 05/13/2024 8:30 AM EDT Office Visit Vascular Surgery - [place] [address] [place] [phone] Marisol Chen PA PAD (peripheral artery disease) ([facility] V24) (Primary Dx) 04/22/2024 12:30 PM EST Ancillary Procedure [facility] [address] [place] [phone] PAD (peripheral artery disease) ([facility] V24) from Last 3 Months Immunizations Name Administration [...] History Surgery Date Site/Laterality Comments SECTION PROCEDURE: [place] DELIVERY ONLY; COMMENT: 1975 x1 UPPER GASTROINTESTINAL ENDOSCOPY PROCEDURE: [place] UPPER GI ENDOSCOPY PERFORMED COLONOSCOPY PROCEDURE: HISTORICAL COLONOSCOPY OTHER SURGICAL HISTORY PROCEDURE: [place] DILATION & CURETTAGE DX&/THER NONOBSTETRIC Medical History Medical History Date Comments Asthma 12/23/2014 DX:Asthma Diverticulosis of duodenum 11/24/2014 DX:Di verticulosis of duodenum; COMMENT: CR Upper GI with air 09/21/09 DM (diabetes mellitus), type 2 with renal complications ([facility] V24, [facility] V28) 09/17/2017 DX:DM (diabetes mellitus), t ype 2 with renal complications ([facility]) Fibromyalgia 11/24/2014 DX:Fibromyalgia GERD (gastroesophageal reflux disease) [...] deficiency 09/28/2017 DX:Vitamin D deficiency Psoriatic arthritis ([facility] V24, [facility] V28) DX:Psoriatic arthritis ([facility]) Family History Medical History Relation Name Comments [...] AM EDT Office Visit Internal Medicine - [address] [phone] Nelia Robles MD [address] [place] [phone] 04/07/2025 10:00 AM EST Ancillary Procedure [facility] [address] [place] [address] 05/14/2025 9:30 AM EDT Office Visit Vascular Surgery - [place] [address] [place] [address] Marisol Chen PA [address] [facility] [address] [place] [address] Health Maintenance Due Date Last Done Comments Diabetes: Annual Foot Exam 10/17/1961 RSV Immunization Adult Patients (1 - Risk 60-74 years 1-dose series) 2011 12/06/2022 Colorectal Cancer Screening: Stool Based Tests (FOBT/FIT) 02/11/2022 Depression Screening 02/11/2022 Social Influencers of Health Screening 02/11/2022 Medicare Annual Wellness Visit 09/29/2023 09/28/2022 Falls Risk Assessment 04/03/2024 04/03/2023 COVID-19 Vaccine () 05/26/2024 11/27/2023, 12/26/2022, 01/10/2022, Additional history exists Breast Cancer Screening 10/25/2024 10/26/19, 10/19/2021, 09/29/2020, Additional history exists Diabetes: Blood [...] Completed 11/21/2023, , 11/22/2021, Additional history exists HIB Vaccines Aged Out [...] Procedure Name Priority Date/Time Associated Diagnosis Comments MAGNESIUM Routine 06/24/2024 8:48 AM EDT Hypomagnesemia MAGNESIUM Routine 06/13/2024 8:48 AM EDT Hypomagnesemia MICROALBUMIN CREATININE URINE RATIO Routine 05/29/2024 9:07 AM EDT Controlled type 2 diabetes mellitus with diabetic neuropathy, without long-term current use of insulin ([facility] V24, [facility] V28) COMPREHENSIVE METABOLIC PANEL Routine 05/29/2024 8:43 AM EDT Controlled type 2 diabetes mellitus with diabetic neuropathy, without long-term current use of insulin (CMS/HCC V24, CMS/HCC V28) HEMOGLOBIN A1C Routine 05/29/2024 8:43 AM EDT Controlled type 2 diabetes mellitus with diabetic neuropathy, without long-term current use of insulin (CMS/HCC V24, CMS/HCC V28) LIPID PANEL WITH REFLEX TO DIRECT LDL Routine 05/29/2024 8:43 AM EDT Controlled type 2 diabetes mellitus with diabetic neuropathy, without long-term current use of insulin (CMS/HCC V24, CMS/HCC V28) THYROID STIMULATING HORMONE Routine 05/29/2024 8:43 AM EDT Hypothyroidism, unspecified type MAGNESIUM Routine 05/29/2024 8:43 AM EDT Hypomagnesemia EXTERNAL DIABETIC RETINA EYE EXAM 05/15/2024 VAS US DUPLEX LOWER EXT ARTERIES BILAT WITH CHRISTIN Routine 04/22/2024 1:11 PM EST PAD (peripheral artery disease) ([facility] V24) FALLS RISK ASSESSMENT Routine 04/03/2023 [facility] SCREENING DIGITAL Routine 10/25/2022 10:42 AM EDT Encounter for screening mammogram for malignant neoplasm of breast COLONOSCOPY Routine 06/02/2022 DXA BONE DENSITY STUDY 1+ SITS AXIAL SKEL Routine 09/08/2021 9:05 AM EDT Encounter for screening for osteoporosis HEPATITIS C SCREENING Routine 03/03/2016 from Last 3 Months or Most Recently Relevant to Health Maintenance Results * (ABNORMAL) Magnesium (06/24/2024 8:48 AM EDT) Only the most recent of3 resultswithin the time period is included. Magnesium 1.8(L) 1.9 - 2.6 mg/dL LAB CHEMISTRY METHOD 06/24/2024 1:41 PM EDT [facility] Blood Venous blood specimen / Unknown Venipuncture / Unknown 06/24/2024 8:48 AM EDT 06/24/2024 8:48 AM EDT us Nelia Robles MD LAB BLOOD ORDERABLES Final Res ult [facility] [address] [place] [address], [place] [phone] * Microalbumin creatinine urine ratio (05/29/2024 9:07 AM EDT) Creatinine, Urine 119.0 mg/dL LAB CHEMISTRY METHOD 05/29/2024 3:21 PM EDT [facility] Microalb, Ur 14.2 0.0 - 29.0 mg/L LAB CHEMISTRY METHOD 05/29/2024 3:21 PM EDT [facility] Microalb/Creat Ratio 12 <30 mg/g creat LAB CHEMISTRY METHOD 05/29/2024 3:21 PM T [facility] Urine Urine specimen obtained by clean catch procedure / Unknown Non-blood Collection / Unknown 05/29/2024 9:07 AM EDT 05/29/2024 9:07 AM EDT us Nelia Robles MD LAB URINE ORDERABLES Final Res ult [facility] [address] [place] [address], [place] [phone] * (ABNORMAL) Lipid panel with reflex to direct LDL (05/29/2024 8:43 AM EDT) Cholesterol 199 0 - 200 mg/dL LAB CHEMISTRY METHOD 05/29/2024 1:10 PM [facility] Triglycerides 138 0 - 150 mg/dL LAB CHEMISTRY METHOD 05/29/2024 1:10 PM [facility] HDL 62 >=40 mg/dL LAB CHEMISTRY METHOD 05/29/2024 1:10 PM [facility] LDL Calculated 109(H) 0 - 100 mg/dL LAB CHEMISTRY METHOD 05/29/2024 1:10 PM [facility] VLDL Cholesterol Oleg 27.6 mg/dL LAB CHEMISTRY METHOD 05/29/2024 1:10 PM [facility] Non HDL Chol. (LDL+VLDL) 137 <145 mg/dL LAB CHEMISTRY METHOD 05/29/2024 1:10 PM [facility] Chol/HDL Ratio 3.2 0.0 - 4.4 LAB CHEMISTRY METHOD 05/29/2024 1:10 PM [facility] Blood Venous blood specimen / Unknown Venipuncture / Unknown 05/29/2024 8:43 AM EDT 05/29/2024 8:50 AM EDT us Nelia Robles MD LAB BLOOD ORDERABLES Final Res ult [facility] [address] [place] [address], [place] [phone] * Thyroid stimulating hormone (05/29/2024 8:43 AM EDT) [facility] TSH 1.80 0.40 - 4.00 mcIU/mL LAB CHEMISTRY METHOD 05/29/2024 1:58 PM EDT [facility] Blood Venous blood specimen / Unknown Venipuncture / Unknown 05/29/2024 8:43 AM EDT 05/29/2024 8:50 AM EDT us Nelia Robles MD LAB BLOOD ORDERABLES Final Res ult Performing Organization Address [facility]/ZIP Co de Phone Number [facility] [address] [place] [address], [place] [phone] * Hemoglobin A1c (05/29/2024 8:43 AM EDT) [facility] Hemoglobin A1C 5.8 <6.5 % LAB CHEMISTRY METHOD 05/29/2024 9:20 PM EDT [facility] Mean Bld Glu Estim. 120 mg/dL LAB CHEMISTRY METHOD 05/29/2024 9:20 PM EDT [facility] Blood Venous blood specimen / Unknown Venipuncture / Unknown 05/29/2024 8:43 AM EDT 05/29/2024 8:50 AM EDT us Nelia Robles MD LAB BLOOD ORDERABLES Final Res ult [facility] [address] [place] [address], [place] [phone] * Comprehensive metabolic panel (05/29/2024 8:43 AM EDT) Sodium 139 133 - 145 mmol/L LAB CHEMISTRY METHOD 05/29/2024 1:17 PM [facility] Potassium 3.7 3.5 - 5.5 mmol/L LAB CHEMISTRY METHOD 05/29/2024 1:17 PM [facility] Chloride 103 96 - 110 mmol/L LAB CHEMISTRY METHOD 05/29/2024 1:17 PM [facility] CO2 26 21 - 32 mmol/L LAB CHEMISTRY METHOD 05/29/2024 1:17 PM [facility] Anion Gap 10 3 - 11 LAB CHEMISTRY METHOD 05/29/2024 1:17 PM [facility] Glucose 94 70 - 100 mg/dL LAB CHEMISTRY METHOD 05/29/2024 1:17 PM [facility] BUN 14 5 - 25 mg/dL LAB CHEMISTRY METHOD 05/29/2024 1:17 PM [facility] Creatinine 0.62 0.50 - 1.10 mg/dL LAB CHEMISTRY METHOD 05/29/2024 1:17 PM [facility] eGFR 95 >=60 mL/min/1. 73m2 LAB CHEMISTRY METHOD 05/29/2024 1:17 PM [facility] Comment:Calculation based on the??Chronic Kidney Disease Epidemiology Collaboration (CKD-EPI) equation refit??without adjustment for race. BUN/Creatinine Ratio 22.6 LAB CHEMISTRY METHOD 05/29/2024 1:17 PM [facility] Calcium 9.5 8.5 - 10.5 mg/dL LAB CHEMISTRY METHOD 05/29/2024 1:17 PM [facility] AST (SGOT) 17 10 - 42 unit/L LAB CHEMISTRY METHOD 05/29/2024 1:17 PM [facility] ALT (SGPT) 17 10 - 60 unit/L LAB CHEMISTRY METHOD 05/29/2024 1:17 PM EDT [facility] Alkaline Phosphatase 50 42 - 121 unit/L LAB CHEMISTRY METHOD 05/29/2024 1:17 PM EDT [facility] Total Protein 8.0 6.0 - 8.0 g/dL LAB CHEMISTRY METHOD 05/29/2024 1:17 PM EDT [facility] Albumin 4.6 3.2 - 5.0 g/dL LAB CHEMISTRY METHOD 05/29/2024 1:17 PM EDT [facility] Total Bilirubin 0.8 0.0 - 1.4 mg/dL LAB CHEMISTRY METHOD 05/29/2024 1:17 PM EDT [facility] Blood Venous blood specimen / Unknown Venipuncture / Unknown 05/29/2024 8:43 AM EDT 05/29/2024 8:50 AM EDT Nelia Robles MD LAB BLOOD ORDERABLES Final Res ult [facility] [address] [place] [address], [place] [phone] * External Diabetic Retina Eye Exam Report (05/15/2024) Anatomical Region Laterality Modality Ultrasound Provider [facility] US PROCEDURES Final [...] PSV 35 cm/s CV VAS LAB Left COMPENSATION DIRECTOR prox sys PSV 130 cm/s CV VAS [...] PSV 76 cm/s CV VAS LAB Right COMPENSATION DIRECTOR prox sys PSV 103 cm/s CV VAS [...] The mid peroneal artery has biphasic flow. Mangle Operator Garments Details A potter scale, color and doppler analysis ultrasound was performed. During the study longitudinal views were obtained. Continuous wave doppler and pulsed wave doppler was performed. Overall the study quality was good. Tom Pratt MD CV VASCULAR PROCEDURES Final Re sult * Falls Risk Assessment (04/03/2023) [facility] Falls Risk Assessment Abstracted Historical Provider HEALTH MAINTENANCE Final Result * BHAVESH SCREENING DIGITAL (10/25/2022 10:42 AM EDT) Anatomical Region Laterality Modality Mammography 10/25/2022 9:30 AM EDT Narrative 10/25/2022 10:42 AM EDT [facility] Diagnostic Imaging Department [address] [place] [id number] Patient: ??TAMMY AGUIRRE ?/Age/Sex: 1950 - 72 - F Unit#: ??[id number] ? Location/Status: ??SPDIMAM/REG CLI ? Mnemonic/Ordering Site: ??DIGSC/SPMAM Ordering Physician: ??NELIA ROBLES MD [facility] Screening Digital - 10/25/22 - 0956 Report Status:Signed EXAM: [facility] Screening Digital EXAM DATE AND TIME: 10/25/2022 9:57 AM HISTORY: Annual screening COMPARISON: ??10/19/2021, 09/29/2020, 09/24/2019 TECHNIQUE: Bilateral digital breast tomosynthesis was performed in the CC and MLO projections. Computer aided detection with [employer] 3D 3.1 was employed. TISSUE DENSITY: b. [...] Procedure Note Nay Davila MD - 04/10/2023 [facility] Diagnostic Imaging Department [address] [place] [id number] Patient: AGUIRRETAMMY./Age/Sex: 1950 - 72 - F Unit#: [id number] Location/Status: [facility] CLI Mnemonic/Ordering Site: [facility] Ordering Physician: NELIA ROBLES MD [facility] Screening Digital - 10/25/22 - 0956 Report Status:Signed EXAM: [facility] Screening Digital EXAM DATE AND TIME: 10/25/2022 9:57 AM HISTORY: Annual screening COMPARISON: 10/19/2021, 09/29/2020, 09/24/2019 TECHNIQUE: Bilateral digital breast tomosynthesis was performed in the CCand MLO projections. Computer aided detection with i[employer] 3D 3.1was employed. TISSUE DENSITY: b. There [...] Routine screening mammogram BILATERAL in 1 year. 7481F, 7502F Dictating Physician: NAY DAVILA MD Electronically Signed by: NAY DAVILA MD Dic Date/Time: 10/25/22 1041 Sign date/Time: 10/25/22 1042 Nelia Robles MD IM BI PROCEDURES Final Result * Colonoscopy (06/02/2022) [...] classified as having normal bone density. The [facility] Department of Internal Medicine recommends using National [...] classified as having normal bone density. The [facility] Department of Internal Medicine recommendsusing National Osteoporosis [...] fracture risk by FRAX. Nelia Robles MD IMG DXA PROCEDURES Final Resul t * Hepatitis C Screening (03/03/2016) [facility] Hepatitis C Screening Abstracted Historical Provider HEALTH MAINTENANCE Final Result from Last 3 Months or Most Recently Relevant to Health Maintenance Insurance [place] - [place] MEDICARE [facility] Care Teams Log Sawyer Relationship Specialty Start Date End Date Nelia Robles MD [address] [place] [phone] PCP - General Internal Medicine 01/09/24
== END 2024-06-26 08:37 | disposition home or self-care (01) ==
LOC: HO.XRAY 08:36
PROVIDERS: PCP Internal Medicine; Visit Provider Internal Medicine Rheumatology
DX: M54.2 Cervicalgia (principal)
CPT/HCPCS: 72040

== ENCOUNTER → 2024-06-26 08:43 | Outpatient (BNV) | payer MEDICARE, MEDICAID, SELFPAY | PROVIDERS: PCP Internal Medicine; Visit Provider Radiology Diagnostic Radiology | DX: M47.812 Spondylosis without myelopathy or radiculopathy, cervical region (principal) | CPT/HCPCS: 72040 ==

== ENCOUNTER 2024-10-08 09:02 | Outpatient (AMB) | payer MEDICARE, MEDICAID, SELFPAY ==
--- NOTE | 2024-10-08 09:03 | MHC.OFFVIS ---
Vital Signs 10/08/24 09:04 Height 5 ft 2 in Weight 161 lb 2 oz BMI 29.5 BP 130/80 Blood Pressure Location Lt brachial Position Sitting Pulse 68 Pulse Source Pulse Oximeter Pulse Oximetry (%) 98 Oxygen Delivery Method Room Air Intake Visit Reasons: 3 Months Intake Note: Pt presents today for arthritis. Accompanied by: Self / Same As Patient Allergies erythromycin base Allergy (Unknown, Verified 10/08/24 09:08) Unknown lisinopril Adverse Reaction (Unknown, Verified 10/08/24 09:08) Unknown pantoprazole (From Protonix) Adverse Reaction (Unknown, Verified 10/08/24 09:08) Unknown HPI HPI 3 Months: Details: PT helped reduced neck pain. SHe is compliant with PT exercises. SHe did not go to OT because her PT did not have OT. Hand pain has improved with icing. Having difficulty holding heavy objections like a full coffee cup. PFSH Medical History Tenosynovitis of finger Disturbance of salivary secretion Psoriatic arthropathy Osteoarthritis of lumbar spine Osteoarthritis, hand, primary localized Lumbar spondylosis Dry eye syndrome Backache Surgical History Hx of colonoscopy Family History Father Psoriasis Mother Heart disease Physical Exam Vital Signs: Last Vital Signs Pulse 68 10/08/24 09:04 BP 130/80 10/08/24 09:04 Pulse Ox 98 10/08/24 09:04 Oxygen Delivery Method Room Air 10/08/24 09:04 BMI result Body Mass Index 29.5 Const Other: General: Comfortable CVS: RRR Respiratory: clear to auscultation bilaterally. Good respiratory effort Skin: No lesions seen MSK: Cervical spinous process. Rotation of cervical spine to the left is 60 degrees and to the right is 90 degrees. No paraspinal muscle tenderness. No tenderness of extensor compartment of wrists. [place] nodes present. Subluxation of right 2nd DIPJ. Assessment & Plan Assessment & Plan (1) Cervical spondylosis: Comment: Resolved Code(s): M47.812 - Spondylosis without myelopathy or radiculopathy, cervical region Category: Medical Plan: Continue PT exercises at home (2) Psoriatic arthritis: Comment: Clinically quiescent. She is not on DMARD treatment. Code(s): L40.50 - Arthropathic psoriasis, unspecified Category: Medical Plan: Monitor clinically Return to clinic in 6 months (3) De Quervain's tenosynovitis, right: Comment: Right recurrent. Improved with bracing and diclofenac gel. Resolved with icing. Code(s): M65.4 - Radial styloid tenosynovitis [de Quervain] Category: Medical Plan: Monitor clinically We discussed importance of hand strengthening program. She went to OT in the past and we will resume exercises twice a day Return to clinic in 6 months (4) De Quervain's tenosynovitis, left: Comment: Recurrent. Improved with bracing and using diclofenac gel. Resolved with icing Code(s): M65.4 - Radial styloid tenosynovitis [de Quervain] Category: Medical Plan: Monitor clinically We discussed importance of hand strengthening program. She went to OT in the past and we will resume exercises twice a day Return to clinic in 6 months Coding Level of Care Code Est Pt Level 4 (97297) Complex EM visit Add On G2211 Diagnoses Cervical spondylosis M47.812 Psoriatic arthritis L40.50 De Quervain's tenosynovitis, right M65.4 De Quervain's tenosynovitis, left M65.4
[2024-10-08 09:04] VITALS: BP 130/80; PULSE 68; O2SAT 98; BMI 29.5
--- OUTSIDE RECORDS SUMMARY | 2024-10-08 09:17 | XMS_ITS | Clinical Summary ---
Author Organization [address] [place] [address] [place] [phone] Phone Care Team Providers Care Mannequin Maker Name Role Phone Terrell Molina MD Primary Care Provider [phone] Allergies Active Allergy Reactions Criticality Noted Date Comments Erythromycin Anaphylaxis High 06/27/2006 Other Reaction(s): Hives/Urticaria Lisinopril Headache Medium 01/23/2019 H/A's and poor BP control Pantoprazole Other High 02/06/2019 Protonix- Causes significant hypomagnesia Medications cycloSPORINE 0.05 % drops 1 Drop 2 times daily. Active fluticasone propionate (FLONASE) 50 mcg/actuation nasal spray SPRAY 2 SPRAYS IN EACH NOSTRIL EVERY DAY 11/26/19 24 Active FREESTYLE LANCETS [facility] USE ONE TO CHECK GLUCOSE ONCE DAILY 10/02/19 24 Active magnesium chloride (Slow-Mag) 71.5 mg tablet,delayed release (DR/EC) Take by mouth. 09/08/19 20 Active latanoprost (XALATAN) 0.005 % ophthalmic solution Administer 1 drop into both eyes. at bedtime 03/12/19 25 Active albuterol HFA (ProAir HFA) 90 mcg/actuation inhalerIndicati ons:Mild intermittent asthma without complication Inhale 2 puffs by mouth every 4 (four) hours if needed for wheezing or shortness of breath. 13.4 g 1 05/30/19 25 026 Active losartan (COZAAR) 25 mg tablet TAKE 1 TABLET BY MOUTH EVERY DAY 90 tablet 1 07/12/19 25 Active levothyroxine (SYNTHROID, LEVOTHROID) 75 mcg tablet TAKE 1 TABLET BY MOUTH EVERY DAY 90 tablet 1 07/12/19 25 Active metoprolol succinate (TOPROL-XL) 25 mg 24 hr tablet TAKE 1/2 TABLET BY MOUTH DAILY 45 tablet 07/12/19 25 Active FreeStyle Lancets 28 gauge lancetsIndicati ons:Type 2 diabetes mellitus with diabetic neuropathy, unspecified ([facility] V24, [facility] V28) USE ONE TO CHECK GLUCOSE ONCE DAILY 100 each 1 07/12/19 25 Active blood sugar diagnostic (FreeStyle Lite Strips) test stripIndication s:Type 2 diabetes mellitus with diabetic neuropathy, unspecified ([facility] V24, [facility] V28) CHECK GLUCOSE ONCE DAILY FREESTYLE LITE 100 strip 07/12/19 25 Active lansoprazole (PREVACID) [address] capsule Take 1 capsule (30 mg total) by mouth 1 (one) time each day. Do not crush or chew. 30 each 10/01/19 25 025 Active atorvastatin (LIPITOR) 40 mg tablet TAKE 1 TABLET BY MOUTH EVERY DAY 90 tablet 1 10/03/19 25 Active atorvastatin (LIPITOR) 40 mg tablet Take 1 Tablet by mouth daily. 10/02/19 24 025 Discontinued albuterol HFA (PROAIR HFA ; PROVENTIL HFA ; VENTOLIN HFA) 90 mcg/actuation inhaler INHALE 2 PUFFS INTO THE LUNGS EVERY 4 HOURS NEEDED FOR COUGH OR WHEEZING 18 each 03/12/19 25 025 Discontinued(D uplicate order) famotidine (PEPCID) 40 mg tablet TAKE 1 TABLET BY MOUTH TWICE A DAY 180 tablet 04/14/19 025 Discontinued Active Problems Problem Noted Date Diagnosed Date Renal cyst 04/21/2021 DDD (degenerative disc disease), lumbar 02/19/20 Lumbar radiculitis 02/18/2021 Inflammatory spondylopathy ([facility] V24) 020 Overview (01/07/2024): 11/22- deferred MTX or DMARD due to concerns of AE, low dose prednisone 2.5mg daily. Primary osteoarthritis of both hands 11/24/2019 Overweight 11/07/2019 Hypomagnesemia 07/03/2019 Situational anxiety 01/23/2019 Spondylolisthesis of lumbosacral region 12/24/19 19 Controlled type 2 diabetes m ellitus with diabetic neuropathy, without long-term current use of insulin ([facility] V24, [facility] V28) 06/30/2016 GERD (gastroesophageal reflux disease) 7 [...] Encounters Date Type Department Care Team Description 09/30/2024 8:00 AM EDT Office Visit [facility] [place] [address] [facility] [place] [address] Terrell Molina MD Controlled type 2 diabetes mellitus with diabetic neuropathy, without long-term current use of insulin ([facility] V24, [facility] V28) (Primary Dx); Gastroesophageal reflux disease, unspecified whether esophagitis present; Primary hypertension 08/18/2024 9:03 AM EDT - 08/18/2024 11:59 PM EDT [facility] [address] [phone] Encounter for screening mammogram for malignant neoplasm of breast Discharge Disposition: Home or Self Care from Last 3 Months Immunizations Name Administration [...] History Surgery Date Site/Laterality Comments SECTION PROCEDURE: HI DELIVERY ONLY; COMMENT: 1975 x1 UPPER GASTROINTESTINAL ENDOSCOPY PROCEDURE: HI UPPER GI ENDOSCOPY PERFORMED COLONOSCOPY PROCEDURE: HISTORICAL COLONOSCOPY OTHER SURGICAL HISTORY PROCEDURE: HI DILATION & CURETTAGE DX&/THER NONOBSTETRIC Medical History Medical History Date Comments Asthma 12/23/2014 DX:Asthma Diverticulosis of duodenum 11/24/2014 DX:Di verticulosis of duodenum; COMMENT: CR Upper GI with air 09/21/09 DM (diabetes mellitus), type 2 with renal complications ([facility] V24, [facility] V28) 09/17/2017 DX:DM (diabetes mellitus), t ype 2 with renal complications ([facility]) Fibromyalgia 11/24/2014 DX:Fibromyalgia GERD (gastroesophageal reflux disease) 7 DX:GERD (gastroesophageal reflux disease) Hiatal hernia 03/16/2016 DX:Hiatal hernia HTN (hypertension) 11/24/2014 DX:HTN (hyper tension) Hyperlipidemia 11/24/2014 DX:Hyperlipidemi a; COMMENT: Normal myocardial perfusion scan 06/01/14 LVEF 75% Hypothyroidism 11/24/2014 DX:Hypothyroidis m Microalbuminuria 11/24/2014 DX:Microalbumin uria Obesity (BMI 30-39.9) 09/17/2017 DX:Obesity (BMI 30-39.9) Stress incontinence 11/24/2014 DX:Stress in continence Vitamin D deficiency 09/28/2017 DX:Vitamin D deficiency Psoriatic arthritis ([facility] V24, [facility] V28) DX:Psoriatic arthritis ([facility]) Family History Medical History Relation [...] Cigarettes Q uit: 09/02/2018 Smokeless Tobacco: Never Alcohol Use Standard Drinks/Week Comments Yes 0 (1 standard drink = 0.6 oz pur e alcohol) Housing Instability Answer Date Recorde d Are you worried that in the next 2 months you may not have stable housing? Patient declined 09/25/2024 Food Access & Nutrition Answer Date Rec orded Do you have access to a vari ety of food including fruits and vegetables? Yes 09/25/2024 Financial Risk Answer Date Recorded How hard is it for you to pa y for the very basics like food, housing, medical care, and air conditioning / heating? Somewhat hard 09/25/2024 Food Risk Answer Date Recorded Within the past 12 months we worried whether our food would run out before we got money to buy more. Sometimes true 025 Within the past 12 months th e food we bought just didn't last and we didn't have money to get more. Sometimes true 09/25/2024 Dependent Care Answer Date Recorded Do you need help finding or paying for care for your loved ones. For example, childcare attendant or elderly care for an older adult? No 09/25/2024 Education Answer Date Recorded Do you think completing more education or training, like finishing a GED, going to college, or learning a trade, would be helpful for you? No 09/25/2024 Employment and Income Answer Date Recor ded During the last four weeks, have you been actively looking for work? No 09/25/2024 Living Situation Answer Date Recorded What is your living situation? 0 09/25/2024 Comments No Sex and Gender Information Value Date Recorded Sex Assigned at Not on file Legal Sex Female 2:31 AM EST Gender Identity Not on file Sexual Orientation Not on file Obstetrics History Para Term AB IAB SAB Ectopic Multiple Livin g Live Births 1 Last Filed Vital Signs Vital Sign Reading Time Taken Comments Blood Pressure 120/66 09/30/2024 8:14 AM EDT Pulse 58 09/30/2024 8:14 AM EDT Temperature - - Respiratory Rate 16 05/13/2024 8:31 AM EDT Oxygen Saturation - - Inhaled Oxygen Concentration - - Weight 71.2 kg (157 lb) 09/30/2024 8:14 AM EDT Height 154.9 cm (5' 1 ) 09/30/2024 8:14 AM EDT Body Mass Index 29.66 09/30/2024 8:14 AM EDT Plan of Treatment Upcoming Encounters Date Type Department Care Team (Late st Contact Info) Description 02/03/2025 9:45 AM EST Office Visit Internal Medicine - [address] [phone] Terrell Molina MD [address] [place] [phone] 04/07/2025 10:00 AM EST Ancillary Procedure [facility] - [facility] [address] [facility] [address] [place] [address] 05/14/2025 9:30 AM EDT Office Visit Vascular Surgery - [place] [address] [facility] [address] [place] [phone] Marisol Chen PA [address] [facility] [address] [place] [address] Health Maintenance Due Date Last Done Comments Diabetes: Annual Foot Exam 10/17/1961 RSV Immunization Adult Patients (1 - Risk 60-74 years 1-dose series) 2011 12/06/2022 Colorectal Cancer Screening: Stool Based Tests (FOBT/FIT) 02/11/2022 Medicare Annual Wellness Visit 09/29/2023 09/28/2022 COVID-19 Vaccine ( season) 2024 11/27/2023, 12/26/2022, 01/10/2022, Additional history exists Influenza Vaccine (#1) 2024 , 11/16/2022, 11/22/2021, Additional history exists Diabetes: Blood Sugar Control Test (HGBA1C) 04/02/2025 09/30/2024, 05/29/2024, 01/09/2024, Additional history exists Diabetes: Annual Retina Eye Exam 05/15/2025 05/15/2024, 05/17/2023 Social Influencers of Health Screening 09/25/2025 09/25/2024 Diabetes: Annual Urine Albumin-Creatinine Ratio (uACR) 09/30/2025 09/30/2024, 05/29/2024, 10/03/2023 Diabetes: Annual GFR (Glomerular Filtration Rate) 09/30/2025 09/30/2024, 05/29/2024, 01/09/2024, Additional history exists Falls Risk Assessment 09/30/2025 09/30/2024, 024 Hypertension/CHF/CAD Annual BMP Blood Test 09/30/2025 09/30/2024, 05/29/2024, 01/09/2024, Additional history exists DTaP,Tdap,and Td Vaccines (2 - Td or Tdap) 03/03/2026 03/03/2016 Breast Cancer Screening 08/18/2026 08/19/19 25, 10/25/2022, 10/19/2021, Additional history exists Cholesterol Screening (Lipid Panel) 09/30/2029 09/30/2024, 05/29/2024, 01/09/2024, Additional history exists Osteoporosis Screening (Bone Density Screening) 09/09/2031 09/08/2021, 04/30/2019, 04/18/2017 Hepatitis C Screening Completed 03/03/2016 Zoster Vaccines Completed 05/13/2019, 05/03, 12/09/2018, Additional history exists Pneumococcal Vaccine: 50+ Years Completed 05/03/2021, 05/03/2021, 01/18/2017, Additional history exists Colorectal Cancer Screening: Colonoscopy Discontinued 06/02/2022 RSV Immunization Patients Under 20 months Aged Out 12/06/2022 No longer eligible based on patient's age to complete this topic Depression Screening Completed 09/23/2024 HIB Vaccines Aged Out No longer eligi [...] Diagnosis Comments MICROALBUMIN CREATININE URINE RATIO Routine 09/30/2024 12:18 PM EDT Controlled type 2 diabetes mellitus with diabetic neuropathy, without long-term current use of insulin ([facility] V24, [facility] V28) COMPREHENSIVE METABOLIC PANEL Routine 09/30/2024 8:46 AM EDT Controlled type 2 diabetes mellitus with diabetic neuropathy, without long-term current use of insulin ([facility] V24, [facility] V28) HEMOGLOBIN A1C Routine 09/30/2024 8:46 AM EDT Controlled type 2 diabetes mellitus with diabetic neuropathy, without long-term current use of insulin ([facility] V24, [facility] V28) LIPID PANEL WITH REFLEX TO DIRECT LDL Routine 09/30/2024 8:46 AM EDT Controlled type 2 diabetes mellitus with diabetic neuropathy, without long-term current use of insulin ([facility] V24, [facility] V28) MAMMO DIGITAL SCREENING W BEN BILAT Routine 08/18/2024 9:31 AM EDT Encounter for screening mammogram for malignant neoplasm of breast EXTERNAL DIABETIC RETINA EYE EXAM 05/15/2024 FALLS RISK ASSESSMENT Routine 04/03/2023 COLONOSCOPY Routine 06/02/2022 DXA BONE DENSITY STUDY 1+ SITS AXIAL SKEL Routine 09/08/2021 9:05 AM EDT Encounter for screening for osteoporosis HEPATITIS C SCREENING Routine 03/03/2016 from Last 3 Months or Most Recently Relevant to Health Maintenance Results * Microalbumin creatinine urine ratio (09/30/2024 12:18 PM EDT) Creatinine, Urine 71.0 mg/dL LAB CHEMISTRY METHOD 09/30/2024 5:26 PM EDT [facility] Microalb, Ur 10.8 0.0 - 29.0 mg/L LAB CHEMISTRY METHOD 09/30/2024 5:26 PM EDT [facility] Microalb/Creat Ratio 15 <30 mg/g creat LAB CHEMISTRY METHOD 09/30/2024 5:26 PM EDT [facility] Urine Urine specimen obtained by clean catch procedure / Unknown Non-blood Collection / Unknown 09/30/2024 12:18 PM EDT 09/30/2024 12:18 PM EDT us Terrell Molina MD LAB URINE ORDERABLES Final Res ult Performing Organization Address City/[facility]/ZIP Co de Phone Number [facility] [address] [place] [address], [place] [phone] * Lipid panel with reflex to direct LDL (09/30/2024 8:46 AM EDT) Cholesterol 172 0 - 200 mg/dL LAB CHEMISTRY METHOD 09/30/2024 12:45 PM EDT [facility] Triglycerides 109 0 - 150 mg/dL LAB CHEMISTRY METHOD 09/30/2024 12:45 PM EDT [facility] HDL 67 >=40 mg/dL LAB CHEMISTRY METHOD 09/30/2024 12:45 PM EDT [facility] LDL Calculated 83 0 - 100 mg/dL LAB CHEMISTRY METHOD 09/30/2024 12:45 PM EDT [facility] VLDL Cholesterol Oleg 21.8 mg/dL LAB CHEMISTRY METHOD 09/30/2024 12:45 PM EDT [facility] Non HDL Chol. (LDL+VLDL) 105 <145 mg/dL LAB CHEMISTRY METHOD 09/30/2024 12:45 PM EDT [facility] Chol/HDL Ratio 2.6 0.0 - 4.4 LAB CHEMISTRY METHOD 09/30/2024 12:45 PM EDT [facility] Blood Venous blood specimen / Unknown Venipuncture / Unknown 09/30/2024 8:46 AM EDT 09/30/2024 8:46 AM EDT us Terrell Molina MD LAB BLOOD ORDERABLES Final Res ult [facility] [address] [place] [address], [place] [phone] * Hemoglobin A1c (09/30/2024 8:46 AM EDT) [facility] Hemoglobin A1C 6.0 <6.5 % LAB CHEMISTRY METHOD 09/30/2024 1:05 PM EDT [facility] Mean Bld Glu Estim. 126 mg/dL LAB CHEMISTRY METHOD 09/30/2024 1:05 PM T [facility] Blood Venous blood specimen / Unknown Venipuncture / Unknown 09/30/2024 8:46 AM EDT 09/30/2024 8:46 AM EDT Terrell Molina MD LAB BLOOD ORDERABLES Final Res ult [facility] [address] [place] [address], [place] [phone] * Comprehensive metabolic panel (09/30/2024 8:46 AM EDT) [facility] Sodium 140 133 - 145 mmol/L LAB CHEMISTRY METHOD 09/30/2024 12:45 PM [facility] Potassium 4.3 3.5 - 5.5 mmol/L LAB CHEMISTRY METHOD 09/30/2024 12:45 PM [facility] Chloride 104 96 - 110 mmol/L LAB CHEMISTRY METHOD 09/30/2024 12:45 PM [facility] CO2 27 21 - 32 mmol/L LAB CHEMISTRY METHOD 09/30/2024 12:45 PM [facility] Anion Gap 9 3 - 11 LAB CHEMISTRY METHOD 09/30/2024 12:45 PM [facility] Glucose 88 70 - 100 mg/dL LAB CHEMISTRY METHOD 09/30/2024 12:45 PM [facility] BUN 18 5 - 25 mg/dL LAB CHEMISTRY METHOD 09/30/2024 12:45 PM [facility] Creatinine 0.59 0.50 - 1.10 mg/dL LAB CHEMISTRY METHOD 09/30/2024 12:45 PM [facility] eGFR 96 >=60 mL/min/1. 73m2 LAB CHEMISTRY METHOD 09/30/2024 12:45 PM [facility] Comment:Calculation based on the Chronic Kidney Disease Epidemiology Collaboration (CKD-EPI) equation refit without adjustment for race. BUN/Creatinine Ratio 30.5 LAB CHEMISTRY METHOD 09/30/2024 12:45 PM [facility] Calcium 9.8 8.5 - 10.5 mg/dL LAB CHEMISTRY METHOD 09/30/2024 12:45 PM [facility] AST (SGOT) 14 10 - 42 unit/L LAB CHEMISTRY METHOD 09/30/2024 12:45 PM [facility] ALT (SGPT) 20 10 - 60 unit/L LAB CHEMISTRY METHOD 09/30/2024 12:45 PM [facility] Alkaline Phosphatase 52 42 - 121 unit/L LAB CHEMISTRY METHOD 09/30/2024 12:45 PM [facility] Total Protein 7.3 6.0 - 8.0 g/dL LAB CHEMISTRY METHOD 09/30/2024 12:45 PM [facility] Albumin 4.3 3.2 - 5.0 g/dL LAB CHEMISTRY METHOD 09/30/2024 12:45 PM [facility] Total Bilirubin 0.6 0.0 - 1.4 mg/dL LAB CHEMISTRY METHOD 09/30/2024 12:45 PM [facility] Blood Venous blood specimen / Unknown Venipuncture / Unknown 09/30/2024 8:46 AM EDT 09/30/2024 8:46 AM EDT us Terrell Molina MD LAB BLOOD ORDERABLES Final Res ult [facility] [address] [place] [address], [place] [phone] * MG Mammo Digital Screening w Ben bilat (08/18/2024 9:31 AM EDT) Anatomical Region Laterality Modality Breast Bilateral Mammography 08/18/2024 5:44 PM EDT Impressions 08/18/2024 5:50 PM EDT No mammographic evidence of malignancy. No suspicious interval change. A negative mammogram in the presence of a clinically suspicious palpable abnormality does not preclude the possibility of malignancy or alter the indications for biopsy. ASSESSMENT: BI-RADS 1: NEGATIVE RECOMMENDATION(S): 1: Routine screening mammogram BILATERAL in 1 year. [facility] [address] [place], [address] -------- FINAL REPORT -------- Dictated By: Chapincito Mock Dictated Date: 08/18/2024 17:44 ET Assigned Physician: Chapincito Mock Reviewed and Electronically Signed By: Chapincito Mock Signed Date: 08/18/2024 17:50 ET Workstation ID: [id number] Transcribed By: Self Edit Transcribed Date: 08/18/2024 17:44 ET Narrative 08/18/2024 5:50 PM EDT EXAM: SCREENING MAMMOGRAPHY, BILATERAL HISTORY: SCREENING. Family history of breast cancer, sister diagnosed at age 42. Maternal grandmother with history of breast cancer COMPARISON: 10/25/22, 10/19/21, 09/29/20, 09/24/19 TECHNIQUE: Synthesized CC and MLO projections of each breast. Tomosynthesis of each breast in the CC and MLO projections. ADDITIONAL IMAGING: None Computer-aided detection was employed with the [employer] AI 3-D. TISSUE DENSITY: There are scattered areas of fibroglandular density. (BI-RADS category B) FINDINGS: RIGHT BREAST: No suspicious mass. No suspicious calcification. No distortion. No additional suspicious right breast findings LEFT BREAST: No suspicious mass. No suspicious calcification. No distortion. No additional suspicious left breast findings Procedure Note Chapincito Mock MD - 08/18/2024 EXAM: SCREENING MAMMOGRAPHY, BILATERAL HISTORY: SCREENING. Family history of breast cancer, sister diagnosed atage 42. Maternal grandmother with history of breast cancer COMPARISON: 10/25/22, 10/19/21, 09/29/20, 09/24/19 TECHNIQUE: Synthesized CC and MLO projections of each breast.Tomosynthesis of each breast in the CC and MLO projections. ADDITIONAL IMAGING: None Computer-aided detection was employed with the [employer] AI 3-D. TISSUE DENSITY: There are scattered areas of fibroglandular density.(BI-RADS category B) FINDINGS: RIGHT BREAST: No suspicious mass. No suspicious calcification. No distortion. Noadditional suspicious right breast findings LEFT BREAST: No suspicious mass. No suspicious calcification. No distortion. Noadditional suspicious left breast findings IMPRESSION: No mammographic evidence of malignancy. No suspicious interval change. A negative mammogram in the presence of a clinically suspicious palpableabnormality does not preclude the possibility of malignancy or alter theindications for biopsy. ASSESSMENT: BI-RADS 1: NEGATIVE RECOMMENDATION(S): 1: Routine screening mammogram BILATERAL in 1 year. [facility] location[facility] [address], [address] -------- FINAL REPORT -------- Dictated By: Chapincito Mock Dictated Date: 08/18/2024 17:44 ET Assigned Physician: Chapincito Mock Reviewed and Electronically Signed By: Chapincito Mock Signed Date: 08/18/2024 17:50 ET Workstation ID: [id number] Transcribed By: Self Edit Transcribed Date: 08/18/2024 17:44 ET us Terrell Molina MD IMG BI PROCEDURES Final Result * External Diabetic Retina Eye Exam Report (05/15/2024) Anatomical Region Laterality Modality Ultrasound us Provider [facility] US PROCEDURES Final Result * Falls Risk Assessment (04/03/2023) Falls Risk Assessment Abstracted Historical Provider HEALTH MAINTENANCE Final Result * Colonoscopy (06/02/2022) Colonoscopy No interpretation , Abstracted Anatomical Region Laterality Modality Other us Historical Provider HEALTH MAINTENANCE Final Result * DXA BONE DENSITY STUDY 1+ SITS AXIAL SKEL (09/08/2021 9:05 AM EDT) Anatomical Region Laterality Modality Bone Densitometr y 05/30/2021 2:30 PM EDT Narrative 09/08/2021 4:31 PM EDT BONE DENSITY Lumbar Spine T-score is +0.3 (SD relative to 20-29 y/o adult) Z-score is +2.4 (SD relative to age matched peers) This is normal by criteria defined by the WHO. Left Hip T-score is -0.6 Z-score is +0.9 This is normal by criteria defined by the WHO. Comparison exam(s): significant decrease in bone density of hip when compared to most recent bone density examination Confidence level is +/-95%. Impression: Based on the World Health Organization criteria, Ilia Augirre should be classified as having normal bone density. The [facility] Department of Internal Medicine recommends using National [...] Based on the World Health Organization criteria, Ilia Aguirre shouldbe classified as having normal bone density. The [facility] Department of Internal Medicine recommendsusing National Osteoporosis [...] or over-estimation of fracture risk by FRAX. Terrell Molina MD IM DXA PROCEDURES Final Resul t * Hepatitis C Screening (03/03/2016) [facility] Hepatitis C Screening Abstracted Historical Provider HEALTH MAINTENANCE Final Result from Last 3 Months or Most Recently Relevant to Health Maintenance Insurance [place]ICA[place] - [place] MEDICARE [facility] Care Teams Mannequin Maker Relationship Specialty Start Date End Date Terrell Molina MD [address] [place] [phone] PCP - General Internal Medicine 01/09/24
--- OUTSIDE RECORDS SUMMARY | 2024-10-08 09:17 | XMS_ITS ---
Author Name [facility] Organization Unknown Care Team Organization Name Specialty Phone Email Start Date End Da te [facility] Terrell Molina Primary Care 02/14/2023 10/22/19 [facility] Elena Drake Primary Care 08/11/20222023 [facility] Doyle, PROVIDER Primary Care 01/10/202210/03
== END 2024-10-08 09:30 | disposition home or self-care (01) ==
LOC: HO.RHES 09:03
PROVIDERS: PCP Internal Medicine; Visit Provider Internal Medicine Rheumatology
DX: M47.812 Spondylosis without myelopathy or radiculopathy, cervical region (principal); L40.50 Arthropathic psoriasis, unspecified; M65.4 Radial styloid tenosynovitis [de Quervain]
CPT/HCPCS: 99214; G2211

== ENCOUNTER → 2024-10-08 09:02 | Outpatient (BNVA) | payer MEDICARE, MEDICAID, SELFPAY | PROVIDERS: PCP Internal Medicine; Visit Provider Internal Medicine Rheumatology | DX: M47.812 Spondylosis without myelopathy or radiculopathy, cervical region (principal); M65.4 Radial styloid tenosynovitis [de Quervain]; L40.50 Arthropathic psoriasis, unspecified | CPT/HCPCS: 99212 ==